=== PATIENT | male | born 1965 | race Hispanic/Latino ===

== ENCOUNTER 2018-08-03 06:12 | Observation (INO) | payer OTHER ==
[2018-07-31 15:59] LABS: BASOPHILS % (AUTO) 0.2 % (0.0-5.0); EOSINOPHILS % (AUTO) 0.1 % (0.0-8.0); HEMATOCRIT 42.2 % (42-54); LYMPHOCYTES % (AUTO) 25.9 % (21.0-51.0); MEAN CORPUSCULAR HGB CONC 32.3 g/dL (32.0-36.0); MEAN CORPUSCULAR VOLUME 95.8 fL (79-99); MONOCYTES % (AUTO) 5.1 % (3.0-13.0); NEUTROPHILS % (AUTO) 68.7 % (40.0-77.0); NUCLEATED RED BLOOD CELLS 0.1 % (0.0-0.19); PLATELET COUNT (AUTO) 150 K/uL (130-400); RED CELL DISTRIBUTION WIDTH 15.5 % (11.0-15.5); WHITE BLOOD COUNT (AUTO) 13.4 K/uL (4.8-10.8)
[2018-07-31 16:08] LABS: CREATININE 2.5 mg/dL (0.5-1.5)
[2018-07-31 16:11] LABS: POTASSIUM 5.7 mmol/L (3.5-5.1)
[2018-07-31 16:12] LABS: APPEARANCE,URINE Clear (CLEAR); BILIRUBIN,URINE Negative (NEGATIVE); COLOR,URINE Yellow (YELLOW); GLUCOSE, URINE (UA) Negative (NEGATIVE); KETONES,URINE Negative (NEGATIVE); LEUKOCYTE ESTERASE ,URINE Negative (NEGATIVE); NITRATE,URINE Negative (NEGATIVE); OCCULT BLOOD,URINE Negative (NEGATIVE); PH,URINE 5.5 (5.0-8.0); PROTEIN,URINE Negative (NEGATIVE)
[2018-07-31 16:12] LABS: INR 0.93 (0.85-1.15); PARTIAL THROMBOPLASTIN TIME 27.8 SEC (26.3-35.5); PROTHROMBIN TIME 9.8 SEC (9.6-11.6)
[2018-07-31 16:30] VITALS: BP 151/81
[~2018-08-03] VITALS: Ht 172.7 cm; Wt 84.2 kg
[2018-08-03] VITALS (23 sets, daily range): BP systolic 93–127; BP diastolic 35–67
[~2018-08-03 06:12] MED LIST: ALPR2TAB7 PO; CEFAZOLIN SODIUM 1 GM VIAL IVP SCH; DARU1TAB PO; DESV50TA20 PO; DIVA500T52 PO; DOLU50TA PO; FINA5TAB41 PO; HYDR-4068 PO; LISI1TAB13 PO; MARA150T PO; MIRT15TA6 PO; OLAN10TA20 PO; ROSU10TA27 PO; TAMS-1 PO; TRINTELLIX PO
[2018-08-03] MEDS ORDERED: HYDROCODONE/ACETAMINOPHEN 10/325 MG TAB ONE (09:11)
[2018-08-03 09:17] LABS: CREATININE 2.3 mg/dL (0.5-1.5); POTASSIUM 4.7 mmol/L (3.5-5.1)
[2018-08-03] MEDS ORDERED: LIDOCAINE PF 2% 5ML ABBOJECT ONE (10:19)
[2018-08-03] MEDS ORDERED: ONDANSETRON HCL 4 MG/2 ML VIAL ONE (10:20)
[2018-08-03] MEDS ORDERED: PROPOFOL 10 MG/ML 20ML VIAL IV ONE ×2 (10:20→10:27)
[2018-08-03] MEDS ORDERED: GLYCOPYRROLATE 1 MG/5 ML SYRINGE ONE (10:20)
[2018-08-03] MEDS ORDERED: NEOSTIGMINE 5MG/5ML SYR IV ONE (10:20)
[2018-08-03] MEDS ORDERED: FENTANYL CITRATE PF 50 MCG/1 ML 2ML VIAL ONE (10:21)
[2018-08-03] MEDS ORDERED: MIDAZOLAM HCL 1 MG/ML 2ML VIAL ONE (10:21)
[2018-08-03] MEDS ORDERED: ROCURONIUM 10MG/1ML SYR 10 MG/ML ML ONE (10:21)
[2018-08-03] MEDS ORDERED: DEXAMETHASONE SOD PHOSPHATE 10MG/ML 1ML VIAL ONE (10:23)
[2018-08-03] MEDS ORDERED: ROPIVACAINE 0.5% 5MG/ML 30ML IJ ONE (10:23)
[2018-08-03] MEDS ORDERED: TRANEXAMIC ACID 1000MG/10ML IV ONE ×2 (10:38→14:10)
[2018-08-03] MEDS ORDERED: CEFAZOLIN SODIUM 1 GM VIAL ONE (10:39)
[2018-08-03] MEDS ORDERED: EPHEDRINE SULFATE 50 MG/ML AMPULE ONE ×2 (12:20→13:06)
[2018-08-03] MEDS: SODIUM CHLORIDE 0.9% 1000ML 1,000 ML IV SCH ×3 (13:32→23:21)
[2018-08-03] MEDS ORDERED: DiphenhydrAMINE HCL 50 MG/ML VIAL IVP PRN (13:45)
[2018-08-03] MEDS ORDERED: LIDOCAINE HCL-MPF 1% 2ML VIAL IVP PRN (13:45)
[2018-08-03] MEDS ORDERED: FE FUMARATE/FA/MV, MIN COMB#15 1 TAB PO PRN (13:45)
[2018-08-03] MEDS ORDERED: CALCIUM CARBONATE 500 MG TABLET PO PRN (13:45)
[2018-08-03] MEDS ORDERED: POTASSIUM CHLORIDE 10% ELIXIR 20 MEQ/15 ML UDCUP PO PRN (13:45)
[2018-08-03] MEDS ORDERED: KETOROLAC TROMETHAMINE 15MG/ML IV PRN (13:45)
[2018-08-03] MEDS: ACETAMINOPHEN EXTRA STRENGTH 500 MG TABLET PO SCH ×2 (13:45→22:34)
[2018-08-03] MEDS ORDERED: POTASSIUM CHLORIDE 20 MEQ ERTAB PO PRN (13:45)
[2018-08-03] MEDS ORDERED: POTASSIUM CHLORIDE 20MEQ/100ML 100 ML IV PRN (13:45)
[2018-08-03] MEDS ORDERED: ONDANSETRON HCL 4 MG/2 ML VIAL IVP PRN (13:45)
[2018-08-03] MEDS ORDERED: OXYCODONE HCL 5 MG TAB PO PRN (13:45)
[2018-08-03] MEDS ORDERED: TEMAZEPAM 15 MG CAPSULE PO PRN (13:45)
[2018-08-03] MEDS: OXYCODONE HCL 5 MG TAB PO PRN ×2 (16:39→20:39)
[2018-08-03] MEDS: ALPRAZOLAM 1 MG TAB PO SCH ×2 (16:40→21:00)
[2018-08-03] MEDS: CEFAZOLIN SODIUM 1 GM VIAL IVP SCH (18:21)
[2018-08-03] MEDS: ASPIRIN 325 MG TABLET PO SCH (20:31)
[2018-08-03] MEDS: CELECOXIB 200 MG CAP PO SCH (20:31)
[2018-08-03] MEDS: PREGABALIN 25 MG CAP PO SCH (20:31)
[2018-08-03] MEDS: FAMOTIDINE 20MG TAB 20 MG TAB PO SCH (20:32)
[2018-08-03] MEDS: TAMSULOSIN HCL 0.4 MG CAP.ER.24H PO SCH (20:32)
[2018-08-03] MEDS: MARAVIROC 150 MG PO SCH (20:35)
[2018-08-03] MEDS: **HM**(Dolutegravir Sodium (Tivicay) 50 MG PO SCH (20:35)
[2018-08-03] MEDS ORDERED: HYDROCODONE/ACETAMINOPHEN 10/325 MG TAB PO SCH (21:00)
[2018-08-03] MEDS: TRAMADOL HCL 50 MG TABLET PO PRN (22:48)
[2018-08-04] MEDS: OXYCODONE HCL 5 MG TAB PO PRN ×2 (00:32→04:01)
[2018-08-04] MEDS: CEFAZOLIN SODIUM 1 GM VIAL IVP SCH (02:48)
[2018-08-04 03:12] VITALS: BP 116/68
[2018-08-04 04:55] LABS: HEMATOCRIT 31.1 % (42-54); MEAN CORPUSCULAR HEMOGLOBIN 31.6 pg (27.0-33.0); MEAN CORPUSCULAR HGB CONC 32.9 g/dL (32.0-36.0); MEAN CORPUSCULAR VOLUME 95.9 fL (79-99); NUCLEATED RED BLOOD CELLS 0.1 % (0.0-0.19); PLATELET COUNT (AUTO) 115 K/uL (130-400); RED BLOOD CELL COUNT(AUTO) 3.24 MIL/uL (4.50-6.20); RED CELL DISTRIBUTION WIDTH 15.6 % (11.0-15.5); WHITE BLOOD COUNT (AUTO) 13.8 K/uL (4.8-10.8)
[2018-08-04 04:58] LABS: CREATININE 2.3 mg/dL (0.5-1.5); POTASSIUM 5.4 mmol/L (3.5-5.1)
[2018-08-04] MEDS: ACETAMINOPHEN EXTRA STRENGTH 500 MG TABLET PO SCH ×4 (05:23→22:26)
[2018-08-04] MEDS: HYDROCODONE/ACETAMINOPHEN 10/325 MG TAB PO PRN ×5 (07:36→23:28)
[2018-08-04] MEDS: FAMOTIDINE 20MG TAB 20 MG TAB PO SCH ×2 (07:51→19:37)
[2018-08-04] MEDS: ATORVASTATIN CALCIUM 20 MG TABLET PO SCH (07:52)
[2018-08-04] MEDS: FINASTERIDE 5 MG TABLET PO SCH (07:52)
[2018-08-04] MEDS: TAMSULOSIN HCL 0.4 MG CAP.ER.24H PO SCH ×3 (07:52→19:37)
[2018-08-04] MEDS: CELECOXIB 200 MG CAP PO SCH ×2 (07:52→19:37)
[2018-08-04] MEDS: ASPIRIN 325 MG TABLET PO SCH ×2 (07:52→19:37)
[2018-08-04] MEDS: PREGABALIN 25 MG CAP PO SCH ×2 (07:57→19:37)
[2018-08-04] MEDS: POLYETHYLENE GLYCOL 3350 17 GM POWD.PACK PO SCH (07:59)
[2018-08-04] MEDS: ALPRAZOLAM 1 MG TAB PO SCH (07:59)
[2018-08-04] MEDS: MARAVIROC 150 MG PO SCH ×2 (08:01→19:39)
[2018-08-04] MEDS: DESVENLAFAXINE SUCCINATE PO SCH (08:02)
[2018-08-04] MEDS: **HM**(Dolutegravir Sodium (Tivicay) 50 MG PO SCH ×2 (08:02→19:39)
[2018-08-04] MEDS: DARUNAVIR PO SCH (08:03)
[2018-08-04] MEDS: TRINTELLIX 10 MG PO SCH (08:03)
[2018-08-04] MEDS: COBICISTAT PO SCH (08:03)
[2018-08-04 08:19] VITALS: BP 132/83
[2018-08-04] MEDS ORDERED: ACETAMINOPHEN PO (08:46)
[2018-08-04] MEDS ORDERED: HYDROCODONE PO (08:46)
[2018-08-04] MEDS ORDERED: LISINOPRIL 20 MG TABLET PO SCH (09:00)
[2018-08-04] MEDS ORDERED: HYDROCHLOROTHIAZIDE 25 MG TABLET PO SCH (09:00)
[2018-08-04] MEDS: TRAMADOL HCL 50 MG TABLET PO PRN (09:31)
[2018-08-04] MEDS: SODIUM CHLORIDE 0.9% 1000ML 1,000 ML IV SCH (09:32)
[2018-08-04 12:02] VITALS: BP 103/78
[2018-08-04 16:59] VITALS: BP 92/62
[2018-08-04 19:30] VITALS: BP 112/73
[2018-08-04] MEDS ORDERED: MIRTAZAPINE 15 MG TABLET PO SCH (21:00)
[2018-08-04] MEDS ORDERED: OLANZAPINE 5 MG TAB PO SCH (21:00)
[2018-08-04 23:03] VITALS: BP 111/65
[2018-08-05 03:10] VITALS: BP 103/69
[2018-08-05] MEDS: ACETAMINOPHEN EXTRA STRENGTH 500 MG TABLET PO SCH (05:16)
[2018-08-05] MEDS: HYDROCODONE/ACETAMINOPHEN 10/325 MG TAB PO PRN ×2 (06:20→10:11)
[2018-08-05 07:51] VITALS: BP 109/76
[2018-08-05] MEDS: ATORVASTATIN CALCIUM 20 MG TABLET PO SCH (08:47)
[2018-08-05] MEDS: CELECOXIB 200 MG CAP PO SCH (08:47)
[2018-08-05] MEDS: ASPIRIN 325 MG TABLET PO SCH (08:48)
[2018-08-05] MEDS: **HM**(Dolutegravir Sodium (Tivicay) 50 MG PO SCH (08:48)
[2018-08-05] MEDS: FAMOTIDINE 20MG TAB 20 MG TAB PO SCH (08:48)
[2018-08-05] MEDS: PREGABALIN 25 MG CAP PO SCH (08:48)
[2018-08-05] MEDS: POLYETHYLENE GLYCOL 3350 17 GM POWD.PACK PO SCH (08:48)
[2018-08-05] MEDS: FINASTERIDE 5 MG TABLET PO SCH (08:48)
[2018-08-05] MEDS: MARAVIROC 150 MG PO SCH (08:48)
[2018-08-05] MEDS: TAMSULOSIN HCL 0.4 MG CAP.ER.24H PO SCH (08:48)
[2018-08-05] MEDS: COBICISTAT PO SCH (08:49)
[2018-08-05] MEDS: TRINTELLIX 10 MG PO SCH (08:49)
[2018-08-05] MEDS: DARUNAVIR PO SCH (08:49)
[2018-08-05] MEDS: DESVENLAFAXINE SUCCINATE PO SCH (08:49)
[2018-08-06] MEDS ORDERED: BISACODYL 10 MG SUPP.RECT RC PRN (13:45)
== END 2018-08-05 11:01 | disposition home health service (06) ==
LOC: DAH 06:12 → DAHIP 06:13 → DAH 06:13 → 4AH 14:09
PROVIDERS: ADMIT Orthopaedic Surgery; ATTEND Orthopaedic Surgery
DX: M87.021 Idiopathic aseptic necrosis of right humerus (principal); G89.29 Other chronic pain; Z79.899 Other long term (current) drug therapy; Z79.01 Long term (current) use of anticoagulants
CPT/HCPCS: 23470; 36415 ×3; 76000; 80048 ×3; 81003; 85025; 85027; 85610; 85730; 96374; 96376; 97116 ×3; 97161; 97530 ×3; A4218 ×2; A4565; A4649; A4930; A6204; C1776; G0168; G0378 ×53; G8978; G8979; G8980; G8981; G8982; G8983; J0690 ×5; J1100; J2001; J2250; J2405; J2704 ×2; J2710; J2795; J3010; J3490 ×5; J7120; 88304; 88311

== ENCOUNTER → 2019-01-26 | Outpatient (CLI) | payer OTHER ==
[~2019-01-26] MED LIST changes: +ACETAMINOPHEN PO; -CEFAZOLIN SODIUM 1 GM VIAL IVP SCH; +HYDROCODONE PO
== END | disposition home or self-care (01) ==
LOC: SHCH 10:03
PROVIDERS: ATTEND Internal Medicine Cardiovascular Disease
DX: I51.7 Cardiomegaly (principal); R06.09 Other forms of dyspnea
CPT/HCPCS: 93306

== ENCOUNTER 2019-06-29 09:00 | Inpatient (IN) | payer OTHER ==
[~2019-06-29] VITALS: Ht 174 cm; Wt 93.0 kg
[~2019-06-29 09:00] MED LIST changes: -DESV50TA20 PO; -LISI1TAB13 PO; -MIRT15TA6 PO; -ROSU10TA27 PO; +ROSU10TA28 PO; -TRINTELLIX PO
[2019-06-29 12:53] LABS: APPEARANCE,URINE Clear (CLEAR); BILIRUBIN,URINE Negative (NEGATIVE); COLOR,URINE Yellow (YELLOW); GLUCOSE, URINE (UA) 500 mg/dL (NEGATIVE); KETONES,URINE Negative (NEGATIVE); LEUKOCYTE ESTERASE ,URINE Negative (NEGATIVE); NITRATE,URINE Negative (NEGATIVE); OCCULT BLOOD,URINE Small (NEGATIVE); PH,URINE 6.5 (5.0-8.0); PROTEIN,URINE >=1000 mg/dL (NEGATIVE)
[2019-06-29 12:53] LABS: BASOPHILS % (AUTO) 0.4 % (0.0-5.0); EOSINOPHILS % (AUTO) 0.4 % (0.0-8.0); HEMATOCRIT 46.9 % (42-54); MEAN CORPUSCULAR HGB CONC 32.2 g/dL (32.0-36.0); MONOCYTES % (AUTO) 7.2 % (3.0-13.0); PLATELET COUNT (AUTO) 240 K/uL (130-400); RED BLOOD CELL COUNT(AUTO) 5.21 MIL/uL (4.50-6.20); RED CELL DISTRIBUTION WIDTH 15.9 % (11.0-15.5); WHITE BLOOD COUNT (AUTO) 13.1 K/uL (4.8-10.8)
[2019-06-29 13:06] LABS: CREATININE 1.8 mg/dL (0.5-1.5); POTASSIUM 4.2 mmol/L (3.5-5.1)
[2019-06-29 13:10] LABS: BACTERIA,URINE None Seen /HPF (None Seen); SQUAMOUS EPITHELIAL CELL,UR 0-2 /HPF (0-2); WBC,URINE 0-1 /HPF (0-1)
[2019-06-29 13:14] LABS: INR 0.93 (0.85-1.15); PROTHROMBIN TIME 9.8 SEC (9.6-11.6)
[2019-06-29] MEDS ORDERED: MIRT30TA6 PO (15:40)
[2019-06-29] MEDS ORDERED: MIDO2.5T PO (15:40)
[2019-06-29] MEDS ORDERED: FLUO20CA30 PO (15:40)
[2019-06-29] MEDS ORDERED: TRINTELLIX PO (15:40)
[2019-06-29] MEDS ORDERED: DESV100T16 PO (15:40)
[2019-06-29] MEDS ORDERED: BREX3TAB PO (15:40)
--- NOTE | 2019-06-29 16:50 | NUR ---
LABS INFORMED DR. HOOD OF ABNORMAL UA/ WBC. NO ORDERS RECEIVED. PROCEED WITH PLANNED PROCEDURE.
[2019-06-30] VITALS (19 sets, daily range): BP systolic 120–148; BP diastolic 66–89
[2019-06-30] MEDS ORDERED: CEFAZOLIN SODIUM 1 GM VIAL ONE (07:32)
[2019-06-30] MEDS ORDERED: CEFAZOLIN SODIUM 1 GM VIAL IVP ONE (08:00)
[2019-06-30] MEDS ORDERED: LIDOCAINE PF 2% 5ML ABBOJECT ONE (08:09)
[2019-06-30] MEDS ORDERED: ROPIVACAINE 0.5% 5MG/ML 30ML IJ ONE (08:09)
[2019-06-30] MEDS ORDERED: PROPOFOL 10 MG/ML 20ML VIAL IV ONE (08:10)
[2019-06-30] MEDS ORDERED: ROCURONIUM 10MG/1ML SYR 10 MG/ML ML ONE ×2 (08:10→10:32)
[2019-06-30] MEDS ORDERED: FENTANYL CITRATE PF 50 MCG/1 ML 2ML VIAL ONE (08:11)
[2019-06-30] MEDS ORDERED: LACTATED RINGERS 1000ML 1,000 ML IV ONE (08:14)
[2019-06-30] MEDS ORDERED: MIDAZOLAM HCL 1 MG/ML 2ML VIAL ONE (08:28)
--- NOTE | 2019-06-30 08:30 | NUR ---
NO BLOOD TRANSFUSION pt requested no blood transfusion , Dr Phelps aware Addendum: 06/30/19 at 1033 by MEG JOHNSON RN RN Amended: Links added.
[2019-06-30] MEDS ORDERED: TRANEXAMIC ACID 1000MG/10ML IV ONE (08:43)
[2019-06-30] MEDS ORDERED: KETOROLAC TROMETHAMINE 30MG/ML ONE (11:11)
[2019-06-30] MEDS ORDERED: NEOSTIGMINE 5MG/5ML SYR IV ONE (11:12)
[2019-06-30] MEDS ORDERED: GLYCOPYRROLATE 1 MG/5 ML SYRINGE ONE (11:12)
[2019-06-30] MEDS ORDERED: ONDANSETRON HCL 4 MG/2 ML VIAL ONE (11:12)
[2019-06-30] MEDS ORDERED: LIDOCAINE HCL-MPF 1% 2ML VIAL IV PRN (11:30)
[2019-06-30] MEDS: ACETAMINOPHEN EXTRA STRENGTH 500 MG TABLET PO SCH ×2 (11:30→19:57)
[2019-06-30] MEDS ORDERED: DiphenhydrAMINE HCL 50 MG/ML VIAL IVP PRN (11:30)
[2019-06-30] MEDS ORDERED: TEMAZEPAM 15 MG CAPSULE PO PRN (11:30)
[2019-06-30] MEDS ORDERED: TRAMADOL HCL 50 MG TABLET PO PRN (11:30)
[2019-06-30] MEDS ORDERED: POTASSIUM CHLORIDE 10% ELIXIR 20 MEQ/15 ML UDCUP PO PRN (11:30)
[2019-06-30] MEDS ORDERED: OXYCODONE HCL 5 MG TAB PO PRN (11:30)
[2019-06-30] MEDS ORDERED: CALCIUM CARBONATE 500 MG TABLET PO PRN (11:30)
[2019-06-30] MEDS ORDERED: FE FUMARATE/FA/MV, MIN COMB#15 1 TAB PO PRN (11:30)
[2019-06-30] MEDS ORDERED: POTASSIUM CHLORIDE 20 MEQ ERTAB PO PRN (11:30)
[2019-06-30] MEDS ORDERED: ONDANSETRON HCL 4 MG/2 ML VIAL IVP PRN (11:30)
[2019-06-30] MEDS ORDERED: POTASSIUM CHLORIDE 20MEQ/100ML 100 ML IV PRN (11:30)
--- NOTE | 2019-06-30 12:21 | NUR ---
TRANEXAMIC ACID 1GM IVPB GIVEN IN PACU. Addendum: 06/30/19 at 1221 by JE BERG RN RN Amended: Links added.
[2019-06-30] MEDS: SODIUM CHLORIDE 0.9% 1000ML 1,000 ML IV SCH ×2 (13:11→22:01)
[2019-06-30] MEDS ORDERED: HYDROCODONE/ACETAMINOPHEN 10/325 MG TAB PO PRN (16:30)
[2019-06-30] MEDS: CEFAZOLIN SODIUM 1 GM VIAL IVP SCH (16:36)
[2019-06-30] MEDS: OXYCODONE HCL 5 MG TAB PO PRN (19:56)
[2019-06-30] MEDS: DOLUTEGRAVIR SODIUM 50 MG PO SCH (21:00)
[2019-06-30] MEDS: MARAVIROC 150 MG PO SCH (21:00)
[2019-06-30] MEDS: ATORVASTATIN CALCIUM 20 MG TABLET PO SCH (22:00)
[2019-06-30] MEDS: ALPRAZOLAM 1 MG TAB PO SCH (22:00)
[2019-06-30] MEDS: PREGABALIN 25 MG CAP PO SCH (22:00)
[2019-06-30] MEDS: FAMOTIDINE 20MG TAB 20 MG TAB PO SCH (22:00)
[2019-06-30] MEDS: OLANZAPINE 5 MG TAB PO SCH (22:00)
[2019-06-30] MEDS: TAMSULOSIN HCL 0.4 MG CAP.ER.24H PO SCH (22:00)
[2019-06-30] MEDS: MIDODRINE HCL 5 MG TABLET PO SCH (22:00)
[2019-06-30] MEDS: ASPIRIN 325 MG TABLET PO SCH (22:00)
[2019-06-30] MEDS: DIVALPROEX SODIUM 250 MG TABLET.DR PO SCH (22:01)
[2019-06-30] MEDS: CELECOXIB 200 MG CAP PO SCH (22:01)
[2019-06-30] MEDS: KETOROLAC TROMETHAMINE 15MG/ML IV PRN (22:13)
[2019-07-01] VITALS (7 sets, daily range): BP systolic 118–155; BP diastolic 70–90
[2019-07-01] MEDS: CEFAZOLIN SODIUM 1 GM VIAL IVP SCH (00:44)
[2019-07-01] MEDS: OXYCODONE HCL 5 MG TAB PO PRN ×6 (00:48→22:25)
[2019-07-01] MEDS: ACETAMINOPHEN EXTRA STRENGTH 500 MG TABLET PO SCH ×3 (04:10→19:44)
[2019-07-01 05:15] LABS: HEMATOCRIT 37.1 % (42-54); MEAN CORPUSCULAR HEMOGLOBIN 29.2 pg (27.0-33.0); MEAN CORPUSCULAR HGB CONC 32.1 g/dL (32.0-36.0); MEAN CORPUSCULAR VOLUME 90.7 fL (79-99); PLATELET COUNT (AUTO) 213 K/uL (130-400); RED BLOOD CELL COUNT(AUTO) 4.09 MIL/uL (4.50-6.20); RED CELL DISTRIBUTION WIDTH 15.8 % (11.0-15.5); WHITE BLOOD COUNT (AUTO) 11.8 K/uL (4.8-10.8)
[2019-07-01 05:41] LABS: CREATININE 1.9 mg/dL (0.5-1.5); POTASSIUM 4.6 mmol/L (3.5-5.1)
[2019-07-01] MEDS: SODIUM CHLORIDE 0.9% 1000ML 1,000 ML IV SCH (06:17)
[2019-07-01] MEDS: KETOROLAC TROMETHAMINE 15MG/ML IV PRN (06:24)
[2019-07-01] MEDS: MARAVIROC 150 MG PO SCH ×2 (09:00→21:00)
[2019-07-01] MEDS: BREXPIPRAZOLE 3 MG PO SCH (09:00)
[2019-07-01] MEDS ORDERED: TAMSULOSIN HCL 0.4 MG CAP.ER.24H PO SCH (09:00)
[2019-07-01] MEDS: DOLUTEGRAVIR SODIUM 50 MG PO SCH ×2 (09:00→21:00)
[2019-07-01] MEDS: COBICISTAT PO SCH (09:00)
[2019-07-01] MEDS: MIDODRINE HCL 5 MG TABLET PO SCH ×2 (09:00→19:43)
[2019-07-01] MEDS: DESVENLAFAXINE SUCCINATE PO SCH (09:00)
[2019-07-01] MEDS: DARUNAVIR PO SCH (09:00)
[2019-07-01] MEDS: TRINTELLIX 20 MG PO SCH (09:00)
[2019-07-01] MEDS: POLYETHYLENE GLYCOL 3350 17 GM POWD.PACK PO SCH (10:05)
[2019-07-01] MEDS: CELECOXIB 200 MG CAP PO SCH ×2 (10:05→19:43)
[2019-07-01] MEDS: FLUOXETINE HCL 20 MG CAPSULE PO SCH (10:06)
[2019-07-01] MEDS: FINASTERIDE 5 MG TABLET PO SCH (10:06)
[2019-07-01] MEDS: ASPIRIN 325 MG TABLET PO SCH ×2 (10:06→19:43)
[2019-07-01] MEDS: PREGABALIN 25 MG CAP PO SCH ×2 (10:06→19:43)
[2019-07-01] MEDS: ALPRAZOLAM 1 MG TAB PO SCH ×3 (10:06→19:44)
[2019-07-01] MEDS: MIRTAZAPINE 15 MG TABLET PO SCH (10:06)
[2019-07-01] MEDS: FAMOTIDINE 20MG TAB 20 MG TAB PO SCH ×2 (10:06→19:44)
--- NOTE | 2019-07-01 11:57 | NUR ---
AMELIA Note: [facility] pending approval CM faxed order, clinicals, PT to [facility], confirmation received. Spoke to Sofiya cha/[facility], will wait for clinicals to be received. Pt pending approval. Aware dcp poss for today. Primary nurse aware. CM to cont to follow up.
--- NOTE | 2019-07-01 14:29 | NUR ---
DC PLAN PER PATIENT, NEEDS SOME ASSISTANCE WITH ADLS, LIVES WITH PARTNER, HAS A PROVIDER FOR 4HR PER DAY MON-FRI. AND 3HR PER DAY ON SAT AND SUN. ALSO HAS A WHEELCHAIR AND STATES HE FEELS SAFE TO RETURN HOME. ROSIO SIGNED FOR PENDING HOME HEALTH REFERRAL. CLINICALS FAXED AND RECEIVED AT [facility]. PENDING AUTHORIZATION. Addendum: 07/01/19 at 1430 by GLADYS JAIME RN CM Amended: Links added.
--- NOTE | 2019-07-01 15:12 | NUR ---
CM Note: [facility] pending approval CM spoke to Sofiya cha/[facility]. Pt has approval. Primary nurse aware. Pt safe to dc via private car once MD clear. CM to cont to follow up.
--- NOTE | 2019-07-01 15:13 | NUR ---
1506 had pt sign IM Letter.Faxed to [phone] and placed in chart under consent tab.
[2019-07-01] MEDS: DIVALPROEX SODIUM 250 MG TABLET.DR PO SCH (19:43)
[2019-07-01] MEDS: ATORVASTATIN CALCIUM 20 MG TABLET PO SCH (19:43)
[2019-07-01] MEDS: TAMSULOSIN HCL 0.4 MG CAP.ER.24H PO SCH (19:43)
[2019-07-01] MEDS: OLANZAPINE 5 MG TAB PO SCH (21:05)
[2019-07-02] MEDS: ACETAMINOPHEN EXTRA STRENGTH 500 MG TABLET PO SCH ×2 (02:49→11:30)
[2019-07-02 04:00] VITALS: BP 133/81
[2019-07-02 07:27] VITALS: BP 147/94
[2019-07-02] MEDS: POLYETHYLENE GLYCOL 3350 17 GM POWD.PACK PO SCH (08:40)
[2019-07-02] MEDS: PREGABALIN 25 MG CAP PO SCH (08:42)
[2019-07-02] MEDS: FAMOTIDINE 20MG TAB 20 MG TAB PO SCH (08:42)
[2019-07-02] MEDS: ALPRAZOLAM 1 MG TAB PO SCH ×2 (08:43→11:51)
[2019-07-02] MEDS: MIRTAZAPINE 15 MG TABLET PO SCH (08:43)
[2019-07-02] MEDS: ASPIRIN 325 MG TABLET PO SCH (08:43)
[2019-07-02] MEDS: FLUOXETINE HCL 20 MG CAPSULE PO SCH (08:43)
[2019-07-02] MEDS: FINASTERIDE 5 MG TABLET PO SCH (08:43)
[2019-07-02] MEDS: CELECOXIB 200 MG CAP PO SCH (08:43)
[2019-07-02] MEDS: OXYCODONE HCL 5 MG TAB PO PRN (08:44)
[2019-07-02] MEDS: COBICISTAT PO SCH (08:49)
[2019-07-02] MEDS: DARUNAVIR PO SCH (08:49)
[2019-07-02] MEDS: DOLUTEGRAVIR SODIUM 50 MG PO SCH (08:50)
[2019-07-02] MEDS: MARAVIROC 150 MG PO SCH (08:50)
[2019-07-02] MEDS: DESVENLAFAXINE SUCCINATE PO SCH (08:50)
[2019-07-02] MEDS: BREXPIPRAZOLE 3 MG PO SCH (08:51)
[2019-07-02] MEDS: TRINTELLIX 20 MG PO SCH (08:52)
[2019-07-02] MEDS: MIDODRINE HCL 5 MG TABLET PO SCH (09:00)
[2019-07-02 10:47] VITALS: BP 146/96
--- NOTE | 2019-07-02 12:00 | NUR ---
pt was found on the 3rd floor wandering around and brought back up to 4th floor by nursing staff; he stated he was looking for dr Phelps; i assisted him back to bed and he imediatly fell asleep, while i was talking to him about need to call for nurse; bed alarm turned on; i mentioned this to case managers and she stated pt refuses to go to a snf and that he has alot of support at home from his partner; pt is currently set up to go home with home health.
[2019-07-02 16:31] VITALS: BP 161/93
--- NOTE | 2019-07-02 18:22 | NUR ---
patient cont. to be drowsy but does awake to verbal stimuli; i have talked to his significant other on the telephone and he states its normal for him to be sedated like that at home and that he is going to be there at home to take care of pt once discharged.
--- NOTE | 2019-07-02 20:00 | NUR ---
dressing drain removed dressing left shoulder , incision no redness or drainage noted, removed hemovac dressing, no drainage noted, cleansed with betadine, dab dry, apply opsite , labeled to remove dressing 07/06/19, tolerated well,
--- NOTE | 2019-07-02 20:02 | NUR ---
i have called answering service for [facility] to give report; pending there call back; all d/c paperwork complete; pt to resume his home [place]co, no script for pain meds.; pt partner aware he's being d/c
[2019-07-02 20:05] VITALS: BP 143/75
--- NOTE | 2019-07-02 20:10 | NUR ---
report called [facility] rojelio clifton r.n report given will follow up at home
--- NOTE | 2019-07-02 20:18 | NUR ---
discharge, discharge instructions given per zeus reyes r.n called patients partner brain at home, partner doesnt have vehicle at this time, per patient agreement would call lift to pick him up
--- NOTE | 2019-07-02 20:30 | NUR ---
DISCHARGE CALLED PATIENTS SISTER LEAH THAT PATIENTS IS READY FOR DISCHARGE, PER LEAH WILL COME TO [employer] PATIENT AND TRANSPORT PATIENT TO HIS HOME
--- NOTE | 2019-07-02 21:00 | NUR ---
DRESSING PATIENT DRESSED , BELONGINGS GATHERED, INFORMED PATIENT THAT SISTER LEAH WILL IT APPLICATION SUPPORT ANALYST PATIENT, PATIENT SITTING BEDSIDE CHAIR
--- NOTE | 2019-07-02 21:10 | NUR ---
FALL PATIENT FELL OFF CHAIR ATTEMPTING TO GO BACK TO BED, ASSIST PATIENT BACK TO BED, TEMP 98.0 F PULSE 91 RESP, 20 F/P 148/89, SAT 94 %, SMALL ABRASION NOTICED ON RIGHT BUTTOCK, LEFT ARM SHOULDER IN SLING WITH DRESSING LEFT SHOULDER D/I, DR. HOOD INFORMED OF PATIENTS FALL FROM CHAIR, NO FURTHER ORDERS
--- NOTE | 2019-07-02 21:10 | NUR ---
FALL IT WAS A UNWITNESSED FALL, PATIENT WAS ASSISTED BACK TO BED PER NURSE ONLY, INSTRUCTIONS GIVEN TO PATIENT TO CALL NURSE FOR ASSISTANCE , BED ALARM ON , CALL CHAPMAN AT REACH, PATIENT STATES I THOUGHT I COULD MAKE IT ON MY OWN
--- NOTE | 2019-07-02 21:12 | NUR ---
PRINTED CIRCUIT BOARD PANELS DEVELOPER PRINTED CIRCUIT BOARD PANELS DEVELOPER [place] R.N.NOTIFIED OF PATIENTS FALL
--- NOTE | 2019-07-02 21:13 | NUR ---
DIRECTOR INFORMED DIRECTOR CRISTO OSMAN R.N OF PATIENTS FALL
--- NOTE | 2019-07-02 21:15 | NUR ---
ABRASION SMALL ABRASION SEEN ON RIGHT BUTTOCK, NO BLEEDING NOTICED, APPLY BANDAID
--- NOTE | 2019-07-02 21:25 | NUR ---
DISCHARGE DISCHARGE HOME VIA WHEELCHAIR ACCOMPANIED BY PATIENTS SISTER LEAH SCHULTZ
--- NOTE | 2019-07-02 21:45 | NUR ---
FAMILY FALL CALLED MR. SCHULTZ S PARTNER BRAIN AT HOME, NOTIFIED PATIENT FALL FROM CHAIR
[2019-07-03] MEDS ORDERED: BISACODYL 10 MG SUPP.RECT RC PRN (11:30)
== END 2019-07-02 21:40 | disposition home health service (06) | DRG 483 ==
LOC: EDSTATUS 09:00 → DAHIP 06-30 06:25 → 4AH 06-30 12:39
PROVIDERS: ADMIT Orthopaedic Surgery; ATTEND Orthopaedic Surgery
PROC: 0RRK0J6 Replacement of Left Shoulder Joint with Synthetic Substitute, Humeral Surface, Open Approach (ICD-10-PCS; principal; 2019-06-30 09:31)
DX: M87.822 Other osteonecrosis, left humerus (principal); I10 Essential (primary) hypertension; E78.5 Hyperlipidemia, unspecified; N13.9 Obstructive and reflux uropathy, unspecified; F31.9 Bipolar disorder, unspecified; N40.0 Benign prostatic hyperplasia without lower urinary tract symptoms; Z21 Asymptomatic human immunodeficiency virus [HIV] infection status; Z82.49 Family history of ischemic heart disease and other diseases of the circulatory system; Z83.3 Family history of diabetes mellitus; Z82.61 Family history of arthritis
CPT/HCPCS: 36415; 73020; 80048; 81001; 85025; 85027; 85610; 87641; 88304; 88311; A4344; A4565; G0378; J0690; J1885; J2001; J2250; J2405; J2704; J2710; J2795; J3010; J3490; J7120

== ENCOUNTER → 2020-03-20 | Outpatient (CLI) | payer OTHER ==
[~2020-03-20] MED LIST changes: -ACETAMINOPHEN PO; +BREX3TAB PO; +DESV100T16 PO; +FLUO20CA30 PO; -HYDROCODONE PO; +MIDO2.5T PO; +MIRT30TA6 PO; +TRINTELLIX PO
== END | disposition home or self-care (01) ==
LOC: RAH 10:00
PROVIDERS: ATTEND Family Medicine
DX: G31.84 Mild cognitive impairment of uncertain or unknown etiology (principal)
CPT/HCPCS: 70450

== ENCOUNTER → 2020-04-14 | Outpatient (CLI) | payer OTHER | END | disposition home or self-care (01) | LOC: RAH 04-11 08:09 | PROVIDERS: ATTEND Family Medicine | DX: K76.0 Fatty (change of) liver, not elsewhere classified (principal); R14.0 Abdominal distension (gaseous) | CPT/HCPCS: 76700 ==